=== PATIENT | male | born 1975 | race Caucasian/White ===

== ENCOUNTER 2019-03-12 20:17 | Emergency (ER) | payer OTHER ==
[2019-03-12 20:22] VITALS: TEMP 96
[2019-03-12] MEDS ORDERED: SODIUM CHLORIDE 0.9% 1000ML 1,000 ML IV ONE (20:28)
[2019-03-12 21:00] LABS: BASOPHILS % (AUTO) 0 % (0-3); EOSINOPHILS % (AUTO) 1 % (0-9); HEMATOCRIT 43 % (39-53); HEMOGLOBIN 14.4 gm/dl (13.5-17.7); LYMPHOCYTES % (AUTO) 14.5 % (10-50); MEAN CORPUSCULAR HEMOGLOBIN 30.2 pg (27.0-32.0); MEAN CORPUSCULAR HGB CONC 33.6 gm/dl (32.0-36.0); MEAN CORPUSCULAR VOLUME 90 fL (80-100); MONOCYTES % (AUTO) 7.6 % (0-12); NEUTROPHILS % (AUTO) 76.8 % (37-80)
[2019-03-12 21:17] LABS: ALBUMIN 3.6 gm/dl (3.4-5.0); ALKALINE PHOSPHATASE 125 IU/L (46-116); ALT 29 IU/L (14-63); AST 18 IU/L (15-37); BILIRUBIN,TOTAL 0.8 mg/dl (0.2-1.0); BLOOD UREA NITROGEN 14 mg/dl (7-18); CALCIUM 8.3 mg/dl (8.5-10.1); CARBON DIOXIDE 29.5 mEq/L (21-32); CHLORIDE 105 mMol/L (98-107); CREATININE 1.27 mg/dl (0.80-1.30); GLUCOSE 103 mg/dl (74-106); POTASSIUM 3.6 mMol/L (3.5-5.1); SODIUM 142 mMol/L (136-145); TOTAL PROTEIN 6.8 gm/dl (6.4-8.2); TROP I < 0.017 ng/ml (0.000-0.056)
[2019-03-12 22:20] VITALS: BP 162/108; PULSE 90; RESP 16; O2SAT 99
== END 2019-03-12 22:05 | disposition home or self-care (01) | DRG 149 ==
LOC: ED 20:17
DX: R42 Dizziness and giddiness (principal); I10 Essential (primary) hypertension; E86.0 Dehydration; F12.929 Cannabis use, unspecified with intoxication, unspecified
CPT/HCPCS: 36415; 71045; 80053; 84484; 85025; 93005; 96365; 99284; 99291